=== PATIENT | female | born 1960 | race Caucasian/White ===

== ENCOUNTER 2022-09-17 21:40 | Emergency (ER) | payer BC, OTHER ==
[2022-09-17] MEDS ORDERED: SODIUM CHLORIDE 0.9% 500 ML INFUS.BAG IV ONE (21:43)
[2022-09-17] MEDS ORDERED: ACETAMINOPHEN 1000 MG/100 ML BAG IVPB ONE (21:45)
[2022-09-17] MEDS ORDERED: ACETAMINOPHEN INJECTION 100 ML IVPB ONE (21:51)
[2022-09-17 22:04] VITALS: BMI 21.6
[2022-09-17 22:29] LABS: HEMATOCRIT 47.7 % (32.4-45.2); HEMOGLOBIN 15.5 G/dL (10.7-15.3); MCH 26.4 pg (25.7-33.7); MCHC 32.4 g/dl (32.0-36.0); MEAN CELL VOLUME 81.5 fl (80-96); MEAN PLT VOLUME 9.7 fl (7.5-11.1); PLATELET COUNT 243.3 10^3/uL (134-434); RBC 5.85 10^6/uL (3.60-5.2); RDW 15.6 % (11.6-15.6); WHITE BLOOD COUNT 23.3 10^3/uL (4.0-10.8)
[2022-09-17 22:34] LABS: PLATELET ESTIMATE ADEQUATE
[2022-09-17 22:36] LABS: ALBUMIN 4.3 g/dl (3.4-5.0); BILIRUBIN,TOTAL 1.3 mg/dl (0.2-1); CALCIUM 9.1 mg/dl (8.5-10); TOT PROT 7.1 g/dl (6.4-8.2)
[2022-09-17] MEDS ORDERED: AMOX TR/POT CLAV 875MG/125MG TABLETS (FP) PO ONE (22:40)
[2022-09-17] MEDS ORDERED: AMOX TR/POT CLAV 875MG/125MG TABLETS (FP) ONE (22:48)
[2022-09-17 23:49] VITALS: BP 109/72; PULSE 80; RESP 18; TEMP 98.6
== END 2022-09-17 23:55 | disposition home or self-care (01) ==
LOC: FER 21:40
PROC: 3E0333Z Introduction of Anti-inflammatory into Peripheral Vein, Percutaneous Approach (ICD-10-PCS; principal; 2022-09-17)
DX: A05.9 Bacterial foodborne intoxication, unspecified (principal); K62.5 Hemorrhage of anus and rectum; K52.89 Other specified noninfective gastroenteritis and colitis
CPT/HCPCS: 36415; 80053; 82272; 85027; 99284-25

== ENCOUNTER 2025-03-22 10:41 | Emergency (ER) | payer OTHER ==
[2025-03-22 10:49] VITALS: BP 125/83; PULSE 63; RESP 15; TEMP 97.3; BMI 21.1
[2025-03-22] MEDS ORDERED: ACETAMINOPHEN 500 MG TABLET (FP) ONE (11:05)
[2025-03-22] MEDS: ACETAMINOPHEN 500 MG TABLET (FP) PO ONE (11:05)
[2025-03-22 11:37] LABS: ABSOLUTE IMMATURE GRANULOCYTES 0.01 x10^3/uL (0.0-0.031); BASOPHILS # 0.03 x10^3/uL (0.01-0.08); EOSINOPHIL % 2.7 % (0.7-5.8); EOSINOPHILS # 0.18 x10^3/uL (0.04-0.36); HEMATOCRIT 42.2 % (34.1-44.9); HEMOGLOBIN 13.6 g/dL (11.2-15.7); MCHC 32.2 g/dl (32.2-35.5); MEAN CELL VOLUME 82.4 fl (79.4-94.8); MEAN PLT VOLUME 11.8 fl (9.4-12.3); MONOCYTE # 0.36 x10^3/uL (0.24-0.86); MONOCYTE % 5.4 % (4.7-12.5); PLATELET COUNT 206 x10^3/uL (182-369); RDW 13.8 % (12.4-16.4)
[2025-03-22 11:48] LABS: ALBUMIN 4.5 g/dl (3.4-5.0); BILIRUBIN,TOTAL 0.9 mg/dl (0.2-1); CALCIUM 9.2 mg/dl (8.5-10.1); POTASSIUM 4.3 mmol/L (3.5-5.1); TOT PROT 6.7 g/dl (6.4-8.2)
== END 2025-03-22 12:37 | disposition home or self-care (01) ==
LOC: FER 10:41
DX: R10.32 Left lower quadrant pain (principal); R63.8 Other symptoms and signs concerning food and fluid intake; R11.0 Nausea
CPT/HCPCS: 36415; 72170-TC-FY; 74018-TC-FY; 80053; 81003; 83605; 83690; 85025; 87086; 99284-25